=== PATIENT | male | born 1995 | race Caucasian/White ===

== ENCOUNTER 2017-12-15 07:04 | Emergency (ER) | payer OTHER ==
[~2017-12-15] VITALS: Ht 162.6 cm; Wt 62.7 kg
[2017-12-15 07:59] LABS: HEMATOCRIT 44.2 % (38.0-50.0); HEMOGLOBIN 15.9 G/DL (12.5-16.6); MCH 30.4 PG (29.0-34.0); MCV 84.5 FL (86-99); RBC DIS.WIDTH-CV 12.6 % (11.8-14.6); RBC DIS.WIDTH-SD 38.5 % (39-53); RED BLOOD COUNT 5.23 M/uL (4.00-5.50); WHITE BLOOD COUNT 7.4 K/uL (4.1-10.2)
[2017-12-15 08:16] LABS: CHLORIDE 110 mEq/L (99-109); POTASSIUM 3.5 mEq/L (3.7-5.4); SODIUM 141 mEq/L (136-147)
[2017-12-15 08:18] LABS: GLUCOSE 94 mg/dL (70-99)
[2017-12-15 08:21] LABS: CREATININE 0.8 mg/dL (0.6-1.3); GFR ESTIMATE (CALCULATED) > 59 mL/min/ (58.99-99999)
[2017-12-15 08:22] LABS: UREA NITROGEN (BUN) 18 mg/dL (9-23)
[2017-12-15 08:39] LABS: TROP-I INTERPRETATION NEGATIVE; TROPONIN-I < 0.01 ng/mL (0.0-0.30)
[2017-12-15 09:17] LABS: PLAT.SUFFICIENCY ADEQUATE; PLATELET COUNT 290 K/uL (156-360)
[2017-12-15 11:51] VITALS: BP 122/78
== END 2017-12-15 11:58 | disposition home or self-care (01) ==
LOC: EME 07:04
PROVIDERS: Emergency Medicine
DX: S70.11XA Contusion of right thigh, initial encounter (principal); M54.2 Cervicalgia; M25.561 Pain in right knee; R10.31 Right lower quadrant pain; R07.9 Chest pain, unspecified; M25.551 Pain in right hip; V43.62XA Car passenger injured in collision with other type car in traffic accident, initial encounter; Y92.411 Interstate highway as the place of occurrence of the external cause; I45.10 Unspecified right bundle-branch block
CPT/HCPCS: 71046; 72050; 73564; 74177; 80048; 84484; 85027; 93005; 99281; 99285